=== PATIENT | male | born 1975 | race Two or more races ===

== ENCOUNTER 2019-09-21 13:32 | Emergency (ER) | payer SELFPAY ==
[~2019-09-21] VITALS: Ht 175.3 cm; Wt 72.6 kg
--- NOTE | 2019-09-21 13:40 | NUR ---
[id number] CONSTRUCTION SITE, SCAFFOLDING FELL ON FORHEAD, LACERATION TO RT FOREHEAD, -LOC, TETANUS UP TO DATE. PATIENT A/OX4, BREATHING EVEN AND UNLABORED, NO SOB NOTED, NEEDS ATTENDED.
--- NOTE | 2019-09-21 14:00 | NUR ---
WOUND CARE DONE, BY NATHAN TRAN. HEAD BANDAGED.
[2019-09-21] MEDS ORDERED: ACETAMINOPHEN ES 500 MG TABLET ONE (14:34)
[2019-09-21] MEDS: ACETAMINOPHEN ES 500 MG TABLET PO ONE (14:36)
--- NOTE | 2019-09-21 14:52 | NUR ---
Patient discharged to home in stable condition. Written and verbal after care instructions given. Patient verbalizes understanding of instruction.
[2019-09-21 14:53] VITALS: BP 144/70
== END 2019-09-21 14:53 | disposition home or self-care (01) ==
LOC: ER 13:35
DX: S01.01XA Laceration without foreign body of scalp, initial encounter (principal); E11.9 Type 2 diabetes mellitus without complications; W20.8XXA Other cause of strike by thrown, projected or falling object, initial encounter; Y93.89 Activity, other specified; Y92.89 Other specified places as the place of occurrence of the external cause; Y99.8 Other external cause status
CPT/HCPCS: 99283; A6403